=== PATIENT | female | born 1960 | race Caucasian/White ===

== ENCOUNTER → 2018-08-23 | Outpatient (CLI) | payer OTHER ==
[2018-08-23 13:11] VITALS: BP 161/80; PULSE 891; RESP 16
[2018-08-23 13:21] VITALS: TEMP 98.5
--- NOTE | 2018-08-23 14:01 | P.PAINCN ---
History of Present Illness - Reason for Consult Consult date: 08/23/18 - History of Present Illness This is 58 years old female with a chronic history of low back pain radiated to the posterior lateral aspect of left lower extremity, the symptoms started 7 months ago she denies any initiating event, and she reported that the pain increased with activity, she tried physical therapy without any significant improvement, the pain is constant and increases with activity, she denies any fever or night sweats she denies any change in the bowel movement or urination, she denies any motor or sensory deficit, she never tried interventional pain management., She continues to use NSAID with minimal benefit Past Medical History Additional Past Medical History / Comment(s): hemacromatosis History of Any Multi-Drug Resistant Organisms: None Reported Past Surgical History: Breast Surgery, Cholecystectomy Additional Past Surgical History / Comment(s): breast biopsy-clear, uterine cauterized Past Anesthesia/Blood Transfusion Reactions: No Reported Reaction Past Psychological History: No Psychological Hx Reported Smoking Status: Never smoker Past Alcohol Use History: None Reported Past Drug Use History: None Reported - Past Family History Mother Additional Family Medical History / Comment(s): breast cancer Medications and Allergies Home Medications Medication Instructions Recorded Confirmed Type Ergocalciferol (Vitamin D2) 50,000 unit PO DAILY 08/23/18 08/23/18 History [Vitamin D2] Meloxicam [Mobic] 15 mg PO DAILY 08/23/18 08/23/18 History Multivitamin [Multivitamins Adult 1 each PO DAILY 08/23/18 08/23/18 History Gummies] Allergies Allergy/AdvReac Type Severity Reaction Status Date / Time No Known Allergies Allergy Verified 08/23/18 12:55 Physical Exam Vitals: Vital Signs Temp Pulse Resp BP 08/23/18 12:58 98.5 F 891 H 16 161/80 Intake and Output 08/22/18 08/23/18 08/23/18 22:59 06:59 14:59 Other: Weight 54.431 kg Social history : not smoker , NO ETOH , NO Illegal drugs use . Review of Systems : 1- Constitutional : no chills , no fever , no night sweats , 2- Ears : no ear discharge , no change in hearing 3-Nose, Mouth ,Throat ; no bleeding gums, no sore throat , no epistaxis , 4-Cardiovascular : Denies chest pain, , no orthopnea , no palpitation 5-Respiratory : Denies cough , no dyspnea , no hemoptysis 6-Gastrointestinal :, no change in bowel habits , no coffee- ground emesis . 7-Genitourinary : No hematuria , no discharge , no incontinence, 8-Musculoskeletal : No gait dysfunction , report low back pain with radiation to the posterior aspect of left lower extremity , 9- Neurological : no ataxia , no tremor , no sezure , 10-Psychatric , no suicidal ideation no hallucination 11- Endocrine : no cold intolerence , no polyuria , no polydypsia , 12-Hematologic : no easy bleeding , no easy brusing , 13-Allergic / immunology : no angioedema , no wheezing ,no allergic rhinitis 14-Integumentary : no brttle nails , no change hair / nails , no foot/leg ulcers . Physical Examinations : 1-Constitutional : Cooperative , not in acute distress . 2-HEENT : nech ; supple , no Lymphadenopathy , no Thyromegaly , :eyes , no icterus, no photophobia . ENT : , normal oropharynx , no Thrush 3- Respiratory : Chest clear to auscultations Bilaterally , no wheezing 4- Cardiovascular : regular rate and rhythem , S1 , S2 , no S3 , no S4. 5- Gastrointestinal: abdomen soft no tenderness , no organomegally . 6- Genitourinary : Defferred . 7-Integumentary : No cellulitis , no ulcers , normal skin turgor , no cyanotic . 8- neurologic : Cranial nerve II to XII intact , no focal neurological deffecit 9-psychatric : alert , oriented X 3 , appropriate affect , intact judgment and insight . 10-Lymphatic : no Lymphadenopathy. 11- musculoskeltal: normal gait Lumber spine moter stegnth lower extremities ,thigh and legs 5/5 Right side , 5/5 Left side deep tendon reflexes : normal Knee Jerk , normal ankle Jerk lumber facet Loading Test , positive on the left side , negative on the right side Range of motion of the lumbar spine Flexion 60 degrees, extension 30 degrees strait leg raising test , positive at 60 degree and the left side ,and is negative on the right side Fabere test negative bilaterally Results Comments: MRI of the lumbar spine done at some MRI use disc bulging and tiny central annular tear at L3 4 minimal diffuse disc bulging and moderate facet hypertrophy at L4 5 left neuroforaminal narrowing and moderate facet arthropathy L5-S1 and mild diffuse disc bulging and mild bilateral facet hypertrophy Assessment and Plan Plan: Assessment and plan= low-back pain with radiation to the left lower extremity secondary to lumbar degenerative disc disease and lumbar spondylosis with lumbar facet arthropathy,, patient will be good candidate to have lumbar epidural steroid injection under fluoroscopy guidance at L4 5 levels, doing twice if she continues to have pain after the second injection ,then we will do diagnostic medial branch block lumbar area , Time with Patient: Greater than 30 PQRS Measure Charge Sheet Measure #130: Documentation of Current Meds in Medical Chart: Patient's medications documented in chart Measure #226: Tobacco Use: Screen & Cessation Intervention: Pt not a tobacco user Measure #111: Pneumonia Vaccination: Pneumococcal vaccine NOT administered or previously given Measure #47: Advance Care Plan: Advance care planning discussed & documented, pt chose/unable to give Measure #412: Opioid Treatment Agreement: No documentation of signed opioid treatment agreement Measure #408: Opioid Therapy Follow-up Evaluation: Patient had NO f/u eval minimum every 3 months during opioid therapy Measure #317: Preventitive Care & Scrn High Bld Press & F/U: Pre-hypertensive or hypertensive BP documented, pt will f/u with PCP Measure #128: Body Mass Index (BMI) Screening & Follow-up: BMI documented within normal parameters Measure #131: Pain Assessment & Follow-up: Pain positive & plan documented, Follow-up scheduled Measure #431: Unhealthy Alcohol Use Preventative Care & Scrn: Patient not identified as an unhealthy alcohol user PQRS Narrative: Smoking Status Never smoker Do You Want the Pneumonia No Vaccine AT THIS TIME? Blood Pressure 161/80 Pain Intensity [Left Leg] 5 Scale Used Numeric (1 - 10) Hx Alcohol Use (MH) No Home Medications: Ambulatory Orders Ergocalciferol (Vitamin D2) [Vitamin D2] 50,000 unit PO DAILY 08/23/18 Meloxicam [Mobic] 15 mg PO DAILY 08/23/18 Multivitamin [Multivitamins Adult Gummies] 1 each PO DAILY 08/23/18
== END | disposition home or self-care (01) ==
LOC: PNWHC3 12:44
PROVIDERS: ATTEND Specialist
DX: G89.29 Other chronic pain (principal); M54.5 Low back pain; M51.36 Other intervertebral disc degeneration, lumbar region; M47.816 Spondylosis without myelopathy or radiculopathy, lumbar region; M46.86 Other specified inflammatory spondylopathies, lumbar region; Z79.1 Long term (current) use of non-steroidal anti-inflammatories (NSAID); Z90.49 Acquired absence of other specified parts of digestive tract; Z98.84 Bariatric surgery status; Z98.890 Other specified postprocedural states; Z86.2 Personal history of diseases of the blood and blood-forming organs and certain disorders involving the immune mechanism; Z79.899 Other long term (current) drug therapy
CPT/HCPCS: 99201

== ENCOUNTER 2018-08-24 06:44 | Day surgery (SDC) | payer OTHER ==
[2018-08-24] MEDS ORDERED: SODIUM CHLORIDE 0.9% 500 ML 500 ML IV SCH (07:00)
[2018-08-24 07:14] VITALS: TEMP 97.5
[2018-08-24] MEDS ORDERED: LACTATED RINGERS 1,000 ML IV ONE (07:14)
[2018-08-24] MEDS ORDERED: LIDOCAINE 1% 20 ML VIAL (10MG/ML) FOR IV START INTRADERMA ONE (07:15)
--- NOTE | 2018-08-24 08:27 | P.PCN ---
Date of Procedure: 08/24/18 Procedure(s) Performed: PREOPERATIVE DIAGNOSIS: 1- Lumbar Degenerative Disc Diseases 2-Lumbar spondylosis with Facet arthropathy without myelopathy POSTOPERATIVE DIAGNOSIS: 1-Lumber Degenerative Disc Diseases 2-Lumbar spondylosis with Facet arthropathy without myelopathy PROCEDURE 1. Lumbar epidural steroid injection under fluoroscopic guidance at the L4-5 level. ( left paramedian approach ) 2. Lumbar epidurogram. ANESTHESIA: Local with 1% lidocaine 3 ml and , moderate sedation with intravenous Versed 2 mg ,and fentanyle 50 Mcg EBL: Minimal PROCEDURE INDICATION: The patient with low back pain and radiculitis symptoms unresponsive to conservative treatment. Fluoroscopy was used to optimize visualization of the needle placement and to maximize safety. PROCEDURE DESCRIPTION / TECHNIQUE: The patient was seen and identified in the preoperative area. Risks, benefits , complications including but not limited to infections ,bleeding ,allergic reaction to the medications ,nerve damage and not complete pain releife , and alternatives were discussed with the patient. The patient agreed to proceed with the procedure and signed the consent. IV was started, and vital signs were stable. Patient was taken to the OR and time out was completed. The patient was placed in the prone position on procedure table and a pillow was placed under the abdomen to reduce lumbar lordosis. The lumbosacral area was prepped and draped in the usual sterile fashion.ere closely monitored during the procedure. Conscious sedation was used during the procedure to decrease patients anxiety. Vital signs was monitered during the entire procedure. Using anterior-posterior fluoroscopy, the L4-5 interlaminar space was identified and the skin over this site was marked and then infiltrated with 1% lidocaine subcutaneously. Subsequently, a 20-gauge Tuohy epidural needle was inserted and advanced toward the epidural space using the ``Loss of resistance technique and guided by AP and lateral fluoroscopy. The correct needle position in the epidural space was verified with the injection of 2 mL of the water soluble contrast dye Isovue 200 contrast and observing an excellent epidurogram with the epidural spread of the dye, after negative aspiration for blood and CSF and in the absence of paresthesias. Again after negative aspiration, a 6 ml mixture containing 80 mg of Depo-medrol , and 2 ml of preservative free Normal Saline, and 2 ml of preservative free lidocaine 1% solution was injected and a washout of epidurogram was seen. Needle was withdrawn intact, skin was cleansed, and bandages were applied. COMPLICATIONS: None DISPOSITION / PLANS: The patient was placed in a supine position and transferred to the recovery area in a stable condition for observation. There was no evidence of lower extremity motor or sensory deficit after the procedure. Patient was discharged from the recovery room after meeting discharge criteria. Home discharge instructions were given to the patient by the staff. The patient was reexamined prior to discharge. The patient will schedule a follow up in the clinic in 2-4 weeks.
[2018-08-24] MEDS ORDERED: IV FLUID CONTINUATION 1,000 ML IV ONE (08:31)
[2018-08-24 08:49] VITALS: PULSE 81
[2018-08-24 09:03] VITALS: BP 121/77; RESP 16
--- NOTE | 2018-08-24 09:29 | FL ---
Fluoroscopy INDICATION: Pain FINDINGS: Fluoroscopy time: 2 seconds. Images obtained: 1. IMPRESSIONS: 1. Documentation of fluoroscopy.
== END 2018-08-24 09:16 | disposition home or self-care (01) ==
LOC: ORPAIN 06:44
PROVIDERS: ATTEND Specialist
DX: M51.36 Other intervertebral disc degeneration, lumbar region (principal); M47.816 Spondylosis without myelopathy or radiculopathy, lumbar region; M51.26 Other intervertebral disc displacement, lumbar region; E83.119 Hemochromatosis, unspecified; Z79.1 Long term (current) use of non-steroidal anti-inflammatories (NSAID); Z90.49 Acquired absence of other specified parts of digestive tract
CPT/HCPCS: 62323; J2250; J1030; J3010; Q9966

== ENCOUNTER 2018-09-06 07:16 | Day surgery (SDC) | payer OTHER ==
[2018-09-04 17:28] VITALS: BMI 20.5
[~2018-09-06 07:16] MED LIST: SODIUM CHLORIDE 0.9% 500 ML 500 ML IV SCH
[2018-09-06 07:42] VITALS: RESP 18; TEMP 97.3
[2018-09-06] MEDS ORDERED: LACTATED RINGERS 1,000 ML IV ONE (07:42)
--- NOTE | 2018-09-06 08:30 | P.PCN ---
Date of Procedure: 09/06/18 Procedure(s) Performed: PREOPERATIVE DIAGNOSIS: 1- Lumbar Degenerative Disc Diseases 2-Lumbar spondylosis with Facet arthropathy without myelopathy POSTOPERATIVE DIAGNOSIS: 1-Lumber Degenerative Disc Diseases 2-Lumbar spondylosis with Facet arthropathy without myelopathy PROCEDURE 1. Lumbar epidural steroid injection under fluoroscopic guidance at the L4-5 level. ( left paramedian approach ) 2. Lumbar epidurogram. ANESTHESIA: Local with 1% lidocaine 3 ml and , moderate sedation with intravenous Versed 2 mg ,and fentanyle 50 Mcg EBL: Minimal PROCEDURE INDICATION: The patient with low back pain and radiculitis symptoms unresponsive to conservative treatment. Fluoroscopy was used to optimize visualization of the needle placement and to maximize safety. PROCEDURE DESCRIPTION / TECHNIQUE: The patient was seen and identified in the preoperative area. Risks, benefits , complications including but not limited to infections ,bleeding ,allergic reaction to the medications ,nerve damage and not complete pain releife , and alternatives were discussed with the patient. The patient agreed to proceed with the procedure and signed the consent. IV was started, and vital signs were stable. Patient was taken to the OR and time out was completed. The patient was placed in the prone position on procedure table and a pillow was placed under the abdomen to reduce lumbar lordosis. The lumbosacral area was prepped and draped in the usual sterile fashion.ere closely monitored during the procedure. Conscious sedation was used during the procedure to decrease patients anxiety. Vital signs was monitered during the entire procedure. Using anterior-posterior fluoroscopy, the L4-5 interlaminar space was identified and the skin over this site was marked and then infiltrated with 1% lidocaine subcutaneously. Subsequently, a 20-gauge Tuohy epidural needle was inserted and advanced toward the epidural space using the ``Loss of resistance technique and guided by AP and lateral fluoroscopy. The correct needle position in the epidural space was verified with the injection of 2 mL of the water soluble contrast dye Isovue 200 contrast and observing an excellent epidurogram with the epidural spread of the dye, after negative aspiration for blood and CSF and in the absence of paresthesias. Again after negative aspiration, a 6 ml mixture containing 80 mg of Depo-medrol , and 2 ml of preservative free Normal Saline, and 2 ml of preservative free lidocaine 1% solution was injected and a washout of epidurogram was seen. Needle was withdrawn intact, skin was cleansed, and bandages were applied. COMPLICATIONS: None DISPOSITION / PLANS: The patient was placed in a supine position and transferred to the recovery area in a stable condition for observation. There was no evidence of lower extremity motor or sensory deficit after the procedure. Patient was discharged from the recovery room after meeting discharge criteria. Home discharge instructions were given to the patient by the staff. The patient was reexamined prior to discharge. The patient will schedule a follow up in the clinic in 2-4 weeks.
[2018-09-06] MEDS ORDERED: IV FLUID CONTINUATION 1,000 ML IV ONE (08:34)
[2018-09-06 08:50] VITALS: BP 129/78; PULSE 77
--- NOTE | 2018-09-06 08:56 | FL ---
EXAMINATION TYPE: FL guided pain mgmt statistic DATE OF EXAM: 09/06/2018 HISTORY: Pain 1 SEC FL TIME. . 1 IMAGE SCANNED. LUMBAR EPIDURAL.
== END 2018-09-06 09:04 | disposition home or self-care (01) ==
LOC: ORPAIN 07:16
PROVIDERS: ATTEND Specialist
DX: M51.36 Other intervertebral disc degeneration, lumbar region (principal); M47.816 Spondylosis without myelopathy or radiculopathy, lumbar region
CPT/HCPCS: 62323; J2250; J1100; J3010; Q9966

== ENCOUNTER → 2018-10-03 | Outpatient (CLI) | payer OTHER ==
[2018-10-03 14:27] VITALS: BP 146/88; PULSE 74; RESP 18
--- NOTE | 2018-10-03 14:41 | P.PN ---
Subjective Progress Note Date: 10/03/18 This is a 58-year-old lady with history of lower back pain with radiation to the left lower extremity.. The patient had 2 lumbar epidural steroid injection previously and her pain has significantly improved down to 1 on a scale from 0- 10. The patient still feels some cramps in her left thigh, which have been mild. Today, pt denies new-onset weakness, bowel/bladder incontinence, or any other signs or symptoms of cauda equina syndrome. There are no signs of acute intoxication, and no indications of medication diversion or overuse. In addition to above, 13-point review of systems is also negative for chest pain, shortness of breath, changes in vision, changes in hearing, new onset weakness, abdominal pain, diarrhea, extreme fatigue, malaise, fever, skin changes, homicidal or suicidal ideation, or bowel or bladder incontinence. Vital Signs: Reviewed in EMR Gen: AAOx3, NAD HEENT: PERRLA,hearing grossly normal Pulm: resp unlabored,CTA Heart:S1,S2, No Mur Neck: supple, trachea midline Neuro exam of the lower extremities: Within normal limits Neuro: CN II-XII grossly intact, Imaging: Reviewed in EMR/chart Assessment: Lumbar radiculopathy Plan: 1. Explanation: Opioid and psychological risk scores were reviewed. Diagnoses, prognoses, and multiple treatment options including but not limited to physical therapy, interventional therapies, adjuvant medical therapies, narcotic medication therapies, and surgery were discussed with the patient and all questions were answered to the patient's satisfaction. 2. Opioid agreement: Signed with the patient and the patient is warned not to use opioids while driving or before driving and not to combine opioids with benzodiazepines or alcohol. 3. Counseling: The patient was counseled extensively on SMOKING CESSATION, BODY MASS INDEX, EXERCISE. Specifically, the patient was instructed regarding the importance of smoking cessation, obesity, and exercise in the context of both chronic pain and overall health. 4. Procedures: The patient will call us when her pain starts to come back and then we'll schedule her for the third lumbar epidural steroid injection 5. Consultations: None 6. Investigations: None 7. Medications: None 8. Disposition: Return to clinic as needed 9. Maps were reviewed and were appropriate. PQRS measures: 1-Patient's medications are documented in the chart. 2-Tobacco use is positive, counseling given 3-Patient has not had a pneumococcal vaccine. 4-Advanced care planning discussed, patient unable to give 5-Opioid contract signed with the patient. 6-Pain positive, follow-up visit or procedure scheduled 7-Patient's blood pressure measured and documented within normal limits. 8-Patient's weight was measured, and body mass index within the normal limits, and counseling was done. 9-Patient WAS NOT identified as an unhealthy alcohol user. Objective - Vital Signs Vital signs: Vital Signs Temp Pulse 74 10/03/18 14:17 Resp 18 10/03/18 14:17 BP 146/88 10/03/18 14:17 Pulse Ox 98 10/03/18 14:17 Intake & Output 10/02/18 10/03/18 10/03/18 18:59 06:59 18:59 Weight 54.431 kg
== END ==
LOC: PNWHC3 14:09
PROVIDERS: ATTEND Anesthesiology
DX: M54.16 Radiculopathy, lumbar region (principal); Z72.0 Tobacco use
CPT/HCPCS: 99211

== ENCOUNTER 2020-02-06 15:48 | Emergency (ER) | payer OTHER ==
[2020-02-06 16:01] VITALS: BP 166/72; PULSE 71; RESP 16; TEMP 97.6
[2020-02-06] MEDS ORDERED: predniSONE 50 MG TAB PO STA (16:29)
[2020-02-06] MEDS ORDERED: HYDROmorphone 0.5 MG/0.5 ML SYRINGE IM STA ×2 (16:29→17:18)
[2020-02-06] MEDS ORDERED: CYCLOBENZAPRINE 10MG STARTER 3 TAB BTL PO STA (16:29)
--- NOTE | 2020-02-06 17:04 | XR ---
EXAMINATION TYPE: XR lumbar spine 2 or 3V DATE OF EXAM: 02/06/2020 CLINICAL HISTORY: pain TECHNIQUE: Three views of the lumbar spine are submitted. COMPARISON: None. FINDINGS: There are 5 lumbar type vertebral bodies identified. Curvature noted convex to the right. Grade 1 an terolisthesis L4 on L5 of 3 mm. Severe facet joint arthropathy. The lumbar spine shows satisfactory a lignment without evidence of acute fracture . Vertebral body heights are within normal limits. Mild degenerative disc space narrowing. The overlying soft tissue appears unremarkable. IMPRESSION: No acute fracture is seen in the lumbar spine. ICD 10 NO FRACTURE, INITIAL EVALUATION
--- NOTE | 2020-02-06 17:10 | ED ---
Back Pain HPI - General Source: patient, family Limitations: no limitations <Mile Jolly - Last Filed: 02/06/20 17:52> <Nichole Cardoso - Last Filed: 02/08/20 00:21> - General Chief Complaint: Back Pain/Injury Stated Complaint: back pain Time Seen by Provider: 02/06/20 16:03 - History of Present Illness Initial Comments: 59-year-old female with history of chronic back pain presents emergency department for chief complaint of low back pain rated down the left leg. Patient states that she has had low back with left leg sciatica for years. Seemed to be better for the past few months but within the last 3 weeks flared again. Patient states she has sharp, burning pain down her left buttock and down to the foot. Patient denies loss of sensation, weakness of the extremity, she denies any cancer fever or IV drug use, patient denies any loss of bowel bladder control or urinary retention. Patient states this feels typical of her sciatica but is not controlled with norco or gabapentin. Patient denies additional complaints .Denies trauma/falls. 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 Patient on arrival ambulatory but appears uncomfortable. (Mile Jolly) - Related Data Home Medications Medication Instructions Recorded Confirmed Multivitamin [Multivitamins Adult 1 tab PO DAILY 08/23/18 02/06/20 Gummies] Cholecalciferol [Vitamin D3] 4,000 unit PO DAILY 09/04/18 02/06/20 Citracal Tabs 1 tab PO DAILY 09/04/18 02/06/20 HYDROcodone/APAP 7.5-325MG [[place] 1 tab PO TID PRN 02/06/20 02/06/20 7.5-325] Allergies Allergy/AdvReac Type Severity Reaction Status Date / Time No Known Allergies Allergy Verified 02/06/20 17:03 Review of Systems ROS Other: All systems not noted in ROS Statement are negative. <Mile Jolly - Last Filed: 02/06/20 17:52> ROS Other: All systems not noted in ROS Statement are negative. <Nichole Cardoso - Last Filed: 02/08/20 00:21> ROS Statement: Those systems with pertinent positive or pertinent negative responses have been documented in the HPI. Past Medical History Past Medical History: Hearing Disorder / Deafness, Musculoskeletal Disorder, Osteoarthritis (OA) Additional Past Medical History / Comment(s): Hemochromatosis. DEAF RT EAR. LOWER BACK PAIN. History of Any Multi-Drug Resistant Organisms: None Reported Past Surgical History: Breast Surgery, Cholecystectomy Additional Past Surgical History / Comment(s): breast biopsy-clear, uterine cauterized. Pain proc 08/24/18. Past Anesthesia/Blood Transfusion Reactions: No Reported Reaction Past Psychological History: No Psychological Hx Reported Smoking Status: Never smoker Past Alcohol Use History: None Reported Past Drug Use History: None Reported - Past Family History Mother Family Medical History: Cancer Additional Family Medical History / Comment(s): breast cancer <Mile Jolly - Last Filed: 02/06/20 17:52> General Exam Limitations: no limitations <Mile Jolly - Last Filed: 02/06/20 17:52> - General Exam Comments Initial Comments: General: The patient is awake and alert, in no distress, and does not appear acutely ill. Eye: Pupils are equal, round and reactive to light, extra-ocular movements are intact. No nystagmus. There is normal conjunctiva bilaterally. No signs of i cterus. Cardiovascular: There is a regular rate and rhythm. No murmur, rub or gallop is appreciated. Respiratory: Lungs are clear to auscultation, respirations are non-labored, breath sounds are equal. No wheezes, stridor, rales, or rhonchi. Gastrointestinal: Soft, non-distended, non-tender abdomen without masses or o rganomegaly noted. There is no rebound or guarding present. Musculoskeletal: Nnormal inspection of the low back. Normal ROM, of the LE b/l. Strength 5/5 of the LE b/l. Sensation intact of the LE b/l including the saddle region. DP pulses equal bilaterally 2+. Neurological: A&O x 3. CN II-XII intact grossly, There are no obvious motor or sensory deficits. Coordination appears grossly intact. Speech is normal. Ambulatory. Skin: Skin is warm and dry and no rashes or lesions are noted. Psychiatric: Cooperative, appropriate mood & affect, normal judgment. (Mile Jolly) Course Vital Signs 02/06/20 15:58 Temperature 97.6 F Pulse Rate 71 Respiratory 16 Rate Blood Pressure 166/72 O2 Sat by Pulse 96 Oximetry Medical Decision Making <Mile Jolly - Last Filed: 02/06/20 17:52> <Nichole Cardoso - Last Filed: 02/08/20 00:21> - Medical Decision Making 59yo female presenting today for cc of low back pain with left leg pain posteriorly. Patient hx of sciatica, sees orthopedics and pain management. Patient has no clinical findings/history concerning for cauda equinia. Appears consistent with a radiculopathy patient's known history. Patient appears well nontoxic. No fevers. No falls/trauma. Patient pain controlled in the ER. Requesting dose of medication prior to d/c to last for the evening. Patient has ride. Patient requesting discharge. Recommend outpatient MRI patient agreeable to care plan and discharge at this time. Patient's case was discussed with him prior to today was agreeable to care plan at discharge (Mile Jolly) I was available for consultation in the emergency department. The history and physical exam were done by the midlevel provider. I was consulted for this patients care. I reviewed the case with the midlevel provider and based on their presentation of the patient, I agree with the assessment, medical decision making and plan of care as documented. Chart was dictated using [employer] dictation software. Attempts were made to correct any dictation errors however some typographical errors may persist. Patient was seen during a national state of emergency due to the Covid-19 pandemic. (Nichole Cardoso) Disposition Is patient prescribed a controlled substance at d/c from ED?: No Time of Disposition: 17:09 <Mile Jolly - Last Filed: 02/06/20 17:52> <Nichole Cardoso - Last Filed: 02/08/20 00:21> Clinical Impression: Radiculopathy, Left leg pain Disposition: HOME SELF-CARE Condition: Good Instructions (If sedation given, give patient instructions): Acute Low Back Pain (ED) Additional Instructions: Please use medication as discussed. Please follow-up with family doctor in the next 2 days, i recommend outpatient MRI and consultation by orthopedic spine and pain management. Please return to emergency room if the symptoms increase or worsen or for any other concerns. Referrals: Delilah Duggan FNPBC [Primary Care Provider] - 1-2 days
== END 2020-02-06 17:28 | disposition home or self-care (01) ==
LOC: EC 15:48
DX: M54.16 Radiculopathy, lumbar region (principal); H91.91 Unspecified hearing loss, right ear; M62.89 Other specified disorders of muscle
CPT/HCPCS: 72100; 99283; 96372 ×2; J7512; J1170

== ENCOUNTER → 2020-03-17 | Outpatient (CLI) | payer OTHER ==
--- NOTE | 2020-03-17 14:11 | XR ---
EXAMINATION TYPE: XR chest 2V DATE OF EXAM: 03/17/2020 COMPARISON: None HISTORY: 59-year-old female preop for back surgery, Z01.818 TECHNIQUE: Frontal and lateral views FINDINGS: Heart normal size. Descending thoracic aorta shows mild tortuosity. Mild interstitial prominence as a chronic appearance. Subtle 5 mm peripheral left midlung nodularity. No consolidation or pleural effu barrington. IMPRESSION: Chronic appearing changes. However, there is a 5 mm subtle nodule peripheral left midlung. This may r epresent a calcified granuloma. Nonemergent contrast enhanced CT chest recommended to further evaluat e.
== END | disposition home or self-care (01) ==
LOC: LABPAT 09:17
PROVIDERS: ATTEND Orthopaedic Surgery Orthopaedic Surgery of the Spine
DX: Z01.818 Encounter for other preprocedural examination (principal); Z01.812 Encounter for preprocedural laboratory examination; M54.16 Radiculopathy, lumbar region; M51.26 Other intervertebral disc displacement, lumbar region; R91.1 Solitary pulmonary nodule
CPT/HCPCS: 71046; 87070

== ENCOUNTER 2020-03-26 06:18 | Day surgery (SDC) | payer OTHER ==
[~2020-03-26 06:18] MED LIST changes: +DEXAMETHASONE SOD PHOSPHATE 10 MG/ML 1 ML VIAL IV ONE; +HYDROCORTISONE SUCCINATE 100 MG/2 ML VIAL IV PRN; +HYDROmorphone 0.5 MG/0.5 ML SYRINGE IVP PRN; +LACTATED RINGERS 1,000 ML IV SCH; +ONDANSETRON 4 MG/2 ML VIAL IVP ONE; +SCOPOLAMINE 1.5MG/72HR PATCH TRANSDERM ONE; -SODIUM CHLORIDE 0.9% 500 ML 500 ML IV SCH; +ceFAZolin 1,000 MG in SODIUM CHLORIDE 0.9% IRRIGATIO 1,000 ML IRRIGATION ONE
[2020-03-26] MEDS ORDERED: ONDANSETRON 4 MG/2 ML VIAL ONE (06:56)
[2020-03-26] MEDS ORDERED: LIDOCAINE 1% (10MG/ML) FOR IV START INTRADERMA ONE (07:13)
[2020-03-26] MEDS ORDERED: GLYCOPYRROLATE 0.2 MG/ML 2 ML VIAL ONE (07:28)
[2020-03-26] MEDS ORDERED: PHENYLEPHRINE-0.9% NACL SYG 1 MG/10 ML SYRINGE ONE (07:28)
[2020-03-26] MEDS ORDERED: SUCCINYLCHOLINE CHLORIDE 100 MG/5 ML SYR IV ONE (07:28)
[2020-03-26] MEDS ORDERED: MIDAZOLAM 2 MG/2 ML VIAL ONE (07:28)
[2020-03-26] MEDS ORDERED: PROPOFOL 10 MG/ML 20 ML VIAL IV ONE (07:28)
[2020-03-26] MEDS ORDERED: ROCURONIUM BROMIDE 10 MG/ML 5 ML VIAL IV ONE (07:28)
[2020-03-26] MEDS ORDERED: fentaNYL (PF) 50 MCG/ML 2 ML AMP ONE (07:28)
[2020-03-26] MEDS ORDERED: LIDOCAINE 1% INJ 10MG/ML (20 ML MDV) ONE (07:28)
[2020-03-26] MEDS ORDERED: NEOSTIGMINE 1 MG/ML 10 ML VIAL ONE (07:28)
[2020-03-26] MEDS ORDERED: THROMBIN (BOVINE) 5,000 UNIT VIAL TOPICAL ONE (07:30)
[2020-03-26] MEDS ORDERED: LIDOCAINE 0.5%-EPI 1:200,000 50 ML VIAL SQ ONE (07:30)
[2020-03-26] MEDS ORDERED: methylPREDNISolone ACETATE 40 MG/ML 1 ML VIAL MISCELLANE ONE (07:30)
[2020-03-26] MEDS ORDERED: GELATIN SPONGE,ABSORB (LARGE) 1 EACH SPONGE TOPICAL ONE (07:30)
--- NOTE | 2020-03-26 08:24 | XR ---
Fluoroscopy History: lumbar laminectomy lumbar laminectomy, 5sec fl time
[2020-03-26] MEDS ORDERED: LACTATED RINGERS 1,000 ML IV ONE (08:25)
[2020-03-26] MEDS ORDERED: BENZOCAINE/MENTHOL LOZENG 1 EACH LOZENGE MUCOUS MEM PRN (09:06)
[2020-03-26] MEDS ORDERED: IBUPROFEN 600 MG TAB PO PRN (09:06)
[2020-03-26] MEDS ORDERED: HYDROmorphone 0.5 MG/0.5 ML SYRINGE IVP PRN (09:06)
[2020-03-26] MEDS ORDERED: KETOROLAC 15 MG/ML 1 ML VIAL IVP PRN (09:06)
[2020-03-26] MEDS ORDERED: HYDROcodone/APAP 5-325MG 1 EACH TAB PO PRN (09:06)
[2020-03-26] MEDS ORDERED: ONDANSETRON 4 MG/2 ML VIAL IVP ONE (09:06)
--- NOTE | 2020-03-26 09:13 | P.OP ---
Date of Procedure: 03/26/20 Preoperative Diagnosis: Herniated nucleus pulposus L5-S1, left lower extremity radiculopathy, left lower extremity weakness Postoperative Diagnosis: Same Anesthesia: GETA Pathology: none sent Condition: stable Disposition: PACU Description of Procedure: BRIEF OPERATIVE NOTE Preoperative Diagnosis:Herniated nucleus pulposus L5-S1, left lower extremity radiculopathy, left lower extremity weakness Postoperative Diagnosis:Herniated nucleus pulposus L5-S1, left lower extremity radiculopathy, left lower extremity weakness Procedure: Laminectomy and decompressionL5-S1 Discectomy for decompressionL5-S1 Use of fluoroscopic guidance Surgeon: Dr. [facility] Director: Eze SCHNEIDER who is present throughout the entire the case persistence during positioning, dissection, exposure, visualization, and all crucial elements of the case as well as closure. Anesthesia: General anesthesia Estimated blood loss:Approximately 50 mL Complications: None apparent Components implanted:None Disposition: To recovery room in good stable condition. OPERATIVE INDICATIONS The patient has been having issues in their lower back and lower extremities. She's been having severe problems in her left lower extremity over an S1 distribution. She has noticed some weakness at her left leg. This has inhibited her ability to some activities and work activities as well. She's found to have a disc herniation with extruded fragment at L5-S1 which correlated well with her lower extremity symptoms. The patient was found also to have a s pondylolisthesis L4 5. This does not seem to correlate well with her symptoms. The patient has been through conservative treatment. [place] that the majority of his symptoms are stemming from the disc herniation at L5-S1 and her primary issue was radiculopathy at her left lower extremity.We discussed various treatment options including surgery, and the patient wishes to proceed with surgery We discussed the risk, patient's alternatives and benefits of surgery including but not limited to, risk of bleeding risk of infection, risk of need for further surgery, risk of decreased, loss of motion, loss of function, nerve damage, paralysis, heart attack, blindness and . OPERATIVE SUMMARY After discussing all the risks, patient alternatives and benefits at length, the patient elected to proceed with surgical intervention, signed informed consent, and presented for their procedure. The patient was seen and examined in the preoperative holding area and the surgical site was marked. The patient was given antibiotics and brought to the operating room. The patient was sedated and intubated by anesthesia in standard fashion. The patient was positioned on to the operating room table in a prone position on the appropriate frame which was well-padded and well molded. We were careful to pad any bony prominences and pressure points. We were careful to maintain the patient's cervical spine and good neutral alignment and position throughout. The patient was prepped and draped in a normal standard fashion. An appropriate timeout and keystone protocol performed. We were able to proceed with the surgery. Fluoroscopy was utilized to establish the appropriate levelAt L5-S1. The local wound area was infiltrated with local anesthetic. An incision was made at the midline longitudinally over the appropriate levels At L5-S1. Dissection was taken down subcutaneously to the level of the fascia which was split midline. Dissection was taken over the lamina. Intraoperative fluoroscopy was taken which showed a marker at the appropriate level. With the appropriate level positively confirmed, we were able to proceed with laminectomyAt L5-S1. The wound was copiously irrigated and suctioned dry as had been done periodically throughout the case. I performed a laminectomy with a combination of curettes and a high-speed bur and [place] rongeurs. A small medial facetectomy was performed again further access. A partial foraminotomy was also performed. Portions of the ligamentum flavum were taken down to expose the dura and traversing nerve root. I was able to mobilize the traversing nerve root and gain access to the disc space. Note was made of obvious compression from the disc. Protecting the soft tissue structures, a small annulotomy was established. I was able to perform discectomy and remove any extruded disc fragments and any loose fragments from within the disc itself. There was extruded disc fragments which were removed to allow for further decompression and decrease pressure on the nerve. There is some disc desiccation noted. Any loose for portions of the disc were removed. I tried to preserve the disc annulus that appeared stable. There were no further extruded fragments noted. There is no evidence of dural tear or leak. Good hemostasis maintained. The wound was copiously irrigated and suctioned dry. Good decompression and discectomy was noted. We were able to proceed with closure. The fascia was closed for a watertight closure. The subcuticular tissue was closed with absorbable suture. The wound was cleaned and dried and dressed with the appropriate dressing. The drapes were broken down. The patient was gently rolled back onto their hospital bed being careful to maintain their cervical spine and good neutral alignment and position. They were woken up by anesthesia, extubated, and brought to the recovery room in good stable condition. The patient will be admitted to the hospital for observation and for appropriate postoperative care, medical management and monitoring. We will continue to follow them closely about the postoperative course.
[2020-03-26] MEDS ORDERED: SODIUM CHLORIDE 0.9% 1,000 ML IV SCH (09:15)
[2020-03-26 12:42] VITALS: BP 137/73; PULSE 72; RESP 17; TEMP 97.6
[2020-03-26] MEDS ORDERED: GABAPENTIN 300 MG CAP PO SCH (16:00)
[2020-03-26] MEDS ORDERED: ACETAMINOPHEN 650 MG PO SCH (16:00)
[2020-03-26] MEDS ORDERED: HYDROcodone/APAP 10-325MG 1 EACH TAB PO SCH (16:00)
[2020-03-27] MEDS ORDERED: CHOLECALCIFEROL 1,000 UNIT TAB PO SCH (09:00)
[2020-03-27] MEDS ORDERED: MULTIVITAMINS, THERA 1 EACH TAB PO SCH (09:00)
[2020-03-27] MEDS ORDERED: CALCIUM CARB-VIT D 500MG-200UN 1 EACH TAB PO SCH (09:00)
== END 2020-03-26 15:41 | disposition home or self-care (01) ==
LOC: OR 06:18 → 6NMEDSUR 08:58 → OR 15:41
PROVIDERS: ATTEND Orthopaedic Surgery Orthopaedic Surgery of the Spine
DX: M51.17 Intervertebral disc disorders with radiculopathy, lumbosacral region (principal); M43.16 Spondylolisthesis, lumbar region; Z90.49 Acquired absence of other specified parts of digestive tract; Z79.891 Long term (current) use of opiate analgesic; Z79.899 Other long term (current) drug therapy
CPT/HCPCS: 86900; 86901; 86850; 72020; 36415; 63030; J2250; J1030; J2710; J0690 ×2; J2405; J2001; J3010; J2370; J0330; J2704; J1170